=== PATIENT | male | born 1990 | race Caucasian/White ===

== ENCOUNTER 2016-08-26 19:52 | Emergency (ER) | payer OTHER ==
[2016-08-26 20:18] VITALS: BP 134/60; PULSE 77; TEMP 98.1; BMI 33.9
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
[2016-08-26] MEDS ORDERED: diazePAM 5 MG TABLET PO ONE (20:38)
[2016-08-26] MEDS ORDERED: diazePAM 5 MG TABLET ONE (20:43)
== END 2016-08-26 21:56 | disposition home or self-care (01) ==
LOC: JER 19:52 → JERFT 19:52
DX: S39.012A Strain of muscle, fascia and tendon of lower back, initial encounter (principal); S16.1XXA Strain of muscle, fascia and tendon at neck level, initial encounter; V43.52XA Car driver injured in collision with other type car in traffic accident, initial encounter; Y92.488 Other paved roadways as the place of occurrence of the external cause; Y93.89 Activity, other specified
CPT/HCPCS: 72125-TC; 99281-25